=== PATIENT | female | born 1970 | race Caucasian/White ===

== ENCOUNTER 2018-03-29 19:07 | Emergency (ER) | payer OTHER ==
[~2018-03-29] VITALS: Ht 162.6 cm; Wt 59.9 kg
[2018-03-29 19:42] LABS: APPEARANCE CLEAR ((CLEAR)); BILIRUBIN NEGATIVE; BLOOD SMALL; COLOR YELLOW ((YELLOW)); GLUCOSE (STRIP) NEGATIVE; KETONES 20; LEUKOCYTES NEGATIVE; NITRITE NEGATIVE; PROTEIN (STRIP) NEGATIVE; SPECIFIC GRAVITY 1.017 (1.000-1.030); UROBILINOGEN 0.2 MG/DL (0.2-1.0)
[2018-03-29 19:43] LABS: HEMATOCRIT 39.8 % (36.0-46.0); HEMOGLOBIN 13.4 G/DL (11.9-15.5); MCH 30.7 PG (29.0-34.0); MCHC 33.7 G/DL (30.0-36.0); MCV 91.1 FL (83-99); PLATELET COUNT 212 K/uL (156-360); RBC DIS.WIDTH-CV 12.3 % (11.8-14.6); RBC DIS.WIDTH-SD 41.1 % (39-53); RED BLOOD COUNT 4.37 M/uL (3.80-5.20); WHITE BLOOD COUNT 7.1 K/uL (4.1-10.2)
[2018-03-29 19:43] LABS: BACTERIA RARE /HPF; EPITHELIAL CELLS RARE /HPF; MUCUS TRACE /LPF; RED BLOOD CELLS 0-5 /HPF (0-5); UCUL ADDED? NO; WHITE BLOOD CELLS 0-5 /HPF (0-5)
[2018-03-29 19:51] LABS: ALBUMIN 4.7 g/dL (3.2-4.8); CHLORIDE 104 mEq/L (99-109); POTASSIUM 4.3 mEq/L (3.7-5.4); SODIUM 137 mEq/L (136-147)
[2018-03-29 19:53] LABS: GLUCOSE 92 mg/dL (70-99)
[2018-03-29 19:54] LABS: TOTAL PROTEIN 7.7 g/dL (6.4-8.3)
[2018-03-29 19:55] LABS: TOTAL BILIRUBIN 0.4 mg/dL (0.0-1.0)
[2018-03-29 19:57] LABS: ALKALINE PHOSPHATASE 49 IU/L (3-129)
[2018-03-29 19:58] LABS: UREA NITROGEN (BUN) 14 mg/dL (9-23)
[2018-03-29 19:59] LABS: AST (GOT) 24 IU/L (2-34)
[2018-03-29 20:00] LABS: ALT (GPT) 24 IU/L (3-49); GFR ESTIMATE (CALCULATED) > 59 mL/min/; LIPASE 37 U/L (1.0-51.0)
[2018-03-29 20:06] LABS: QUANTITATIVE HCG < 4.0 MIU/ML
[2018-03-29] MEDS ORDERED: TRAMADOL HCL50 MG PO (22:29)
[2018-03-29 23:12] VITALS: BP 128/89
== END 2018-03-29 23:18 | disposition home or self-care (01) ==
LOC: EME 19:07
DX: N83.201 Unspecified ovarian cyst, right side (principal); R11.0 Nausea; Z90.711 Acquired absence of uterus with remaining cervical stump; I49.8 Other specified cardiac arrhythmias
CPT/HCPCS: 74177; 80053; 81003; 83690; 84702; 85027; 93005; 99281; 99284; J1885; J2405; J7030

== ENCOUNTER → 2018-04-07 | Outpatient (CLI) | payer OTHER ==
[~2018-04-07] MED LIST: TRAMADOL HCL50 MG PO
== END | disposition home or self-care (01) ==
LOC: RAD 08:54
DX: R10.11 Right upper quadrant pain (principal); R10.13 Epigastric pain; K30 Functional dyspepsia; M25.511 Pain in right shoulder; Z76.89 Persons encountering health services in other specified circumstances
CPT/HCPCS: 74245